=== PATIENT | female | born 1945 | race Caucasian/White ===

== ENCOUNTER → 2016-12-25 | Outpatient (CLI) | payer OTHER, BC ==
--- NOTE | 2016-12-25 08:51 | DIAGNOSTIC IMAGING REPORT ---
LUMBAR SPINE W/O CONTRAST CLINICAL HISTORY: 71 years-old Female presenting with back pain, occasional radiculopathy down the bilateral legs, no history of surgery or trauma. TECHNIQUE: Multisequence, multiplanar MR imaging of the lumbar spine was performed without the use of intravenous contrast. IV contrast: None. COMPARISON: None. FINDINGS: Localizer images: Unremarkable. Normal lumbar lordosis. A T1 hyperintense, T2 hyperintense well-defined lesion in the L3 vertebral body is consistent with a benign hemangioma. Vertebral bodies maintain normal height and alignment. Mild intervertebral disc desiccation noted at L3-4 and to a lesser extent at L4-5 and L5-S1. Focal increased signal intensity within the L5-S1 intervertebral disc with associated minimal bony edema along the inferior endplate of L5 eccentrically along the left anterior aspect, likely degenerative in etiology. No significant associated paraspinal inflammation. Multilevel degenerative changes most significantly in the mid to lower lumbar spine detailed below: L1 to: Normal. L2-3: Minimal disc bulge. No significant neural foraminal or spinal canal stenosis. L3-4: Disc bulge and ligamentum flavum hypertrophy result in minimal bilateral neural foraminal narrowing. Minimal circumferential effacement of the thecal sac without evidence of significant stenosis. L4-5: Disc bulge with ligamentum flavum hypertrophy and mild left greater than right facet arthropathy results in mild bilateral neural foraminal narrowing. Circumferential effacement of the the cul-de-sac with maintenance of CSF signal intensity between the nerve rootlets of the cauda equina. L5-S1: Disc bulge with ligamentum flavum hypertrophy and minimal facet arthropathy result in moderate bilateral neural foraminal narrowing. No significant spinal canal stenosis. Spinal cord ends at the superior endplate of L2. Normal morphology of the cauda equina. Paraspinal musculature normal. Nonspecific superficial edema in the posterior subcutaneous tissues of the lumbar region. Remaining soft tissues demonstrate mild right pelviectasis and an extrarenal pelvis. Simple appearing right renal cyst also noted. IMPRESSION: Multilevel degenerative changes resulting in varying degrees of neural foraminal narrowing, most severe at L4-5 and L5-S1. No evidence of cauda equina impingement, however, the greatest degree of spinal stenosis is noted at L4-5. Increased signal intensity within the L5-S1 intervertebral disc with associated minimal bony edema along the inferior endplate of L5 is most likely degenerative in etiology. Electronically signed by: Dax Gaytan M.D. 12/25/2016 8:50 AM Dictated Date/Time: 12/25/2016 8:43 AM
== END | disposition home or self-care (01) ==
LOC: C.MRIBC 07:45
PROVIDERS: ATTEND Pain Medicine Interventional Pain Medicine
DX: M54.16 Radiculopathy, lumbar region (principal); M48.06 Spinal stenosis, lumbar region

== ENCOUNTER → 2017-04-04 | Outpatient (CLI) | payer OTHER, BC ==
[2017-04-04 12:51] LABS: COMPLETE YES; EOS % 0.2 %; HEMATOCRIT 33.8 % (37-47); IG% 0.9 %; LYMPH % 17.9 %; LYMPH ABS # 1.01 K/uL (1.2-3.4); MEAN CELL VOLUME 91.4 fL (80-100); MEAN CORPUSCULAR HEMOGLOBIN 29.5 pg (25-34); MEAN CORPUSCULAR HGB CONC 32.2 g/dl (32-36); MEAN PLATELET VOLUME 8.8 fL (7.4-10.4); MONO % 8.9 %; NEUT % 72.1 %; PLATELET COUNT 265 K/uL (130-400); WHITE BLOOD COUNT 5.64 K/uL (4.8-10.8)
[2017-04-04 13:10] LABS: ALT/SGPT 30 U/L (12-78); AST/SGOT 24 U/L (15-37); BLOOD UREA NITROGEN 11 mg/dl (7-18); BUN/CREATININE RATIO 13.3 (10-20); CALCIUM 8.3 mg/dl (8.5-10.1); CARBON DIOXIDE 27 mmol/L (21-32); CHLORIDE 99 mmol/L (98-107); CREATININE 0.83 mg/dl (0.60-1.20); GLUCOSE 350 mg/dl (70-99); MAGNESIUM 1.6 mg/dl (1.8-2.4); POTASSIUM 3.6 mmol/L (3.5-5.1); SODIUM 134 mmol/L (136-145)
[2017-04-04 13:14] LABS: ALB/GLOB RATIO 0.8 (0.9-2); ALKALINE PHOSPHATASE 29 U/L (45-117)
[2017-04-04 13:22] LABS: BETA-HYDROXYBUTYRATE 1.15 mg/dL (0.2-2.81)
== END | disposition home or self-care (01) ==
LOC: C.LABMFLN 10:22
PROVIDERS: ATTEND Family Medicine
DX: R60.0 Localized edema (principal); E03.9 Hypothyroidism, unspecified; E83.42 Hypomagnesemia

== ENCOUNTER → 2017-07-25 | Outpatient (CLI) | payer OTHER, BC ==
[2017-07-25 13:06] LABS: EOS % 0.2 %; EOS ABS # 0.01 K/uL (0-0.5); HEMATOCRIT 36.9 % (37-47); HEMOGLOBIN 12.3 g/dL (12.0-16.0); IG# 0.02 K/uL (0.00-0.02); LYMPH % 27.1 %; LYMPH ABS # 1.28 K/uL (1.2-3.4); MEAN CELL VOLUME 88.3 fL (80-100); MEAN CORPUSCULAR HEMOGLOBIN 29.4 pg (25-34); MEAN CORPUSCULAR HGB CONC 33.3 g/dl (32-36); MEAN PLATELET VOLUME 9.5 fL (7.4-10.4); MONO % 11.4 %; MONO ABS # 0.54 K/uL (0.11-0.59); NEUT % 60.9 %; NEUT ABS # 2.88 K/uL (1.4-6.5); PLATELET COUNT 214 K/uL (130-400); RED CELL DISTRIBUTION WIDTH CV 14.2 % (11.5-14.5); RED CELL DISTRIBUTION WIDTH SD 45.9 fL (36.4-46.3); WHITE BLOOD COUNT 4.73 K/uL (4.8-10.8)
[2017-07-25 13:43] LABS: HEMOGLOBIN A1C 8.3 % (4.5-5.6)
[2017-07-25 14:28] LABS: ALBUMIN 3.6 gm/dl (3.4-5.0); BLOOD UREA NITROGEN 10 mg/dl (7-18); CALCIUM 8.9 mg/dl (8.5-10.1); CARBON DIOXIDE 28 mmol/L (21-32); CREATININE 0.72 mg/dl (0.60-1.20); GLUCOSE 201 mg/dl (70-99); PHOSPHORUS 3.5 mg/dl (2.5-4.9); POTASSIUM 3.3 mmol/L (3.5-5.1); SODIUM 138 mmol/L (136-145)
== END | disposition home or self-care (01) ==
LOC: C.LABMFLN 09:47
PROVIDERS: ATTEND Family Medicine
DX: E11.9 Type 2 diabetes mellitus without complications (principal)

== ENCOUNTER → 2017-12-02 | Outpatient (CLI) | payer OTHER, BC | END | disposition home or self-care (01) | LOC: C.LABMFLN 08:28 | PROVIDERS: ATTEND Family Medicine | DX: R19.7 Diarrhea, unspecified (principal) ==

== ENCOUNTER → 2017-12-06 | Outpatient (CLI) | payer OTHER, BC ==
[2017-12-06 13:43] LABS: ALBUMIN 3.2 gm/dl (3.4-5.0); BLOOD UREA NITROGEN 9 mg/dl (7-18); CALCIUM 8.1 mg/dl (8.5-10.1); CARBON DIOXIDE 26 mmol/L (21-32); CREATININE 0.79 mg/dl (0.60-1.20); GLUCOSE 219 mg/dl (70-99); PHOSPHORUS 3.1 mg/dl (2.5-4.9); POTASSIUM 3.5 mmol/L (3.5-5.1); SODIUM 136 mmol/L (136-145)
== END | disposition home or self-care (01) ==
LOC: C.LABMFLN 07:29
PROVIDERS: ATTEND Family Medicine
DX: R19.7 Diarrhea, unspecified (principal); E83.42 Hypomagnesemia